=== PATIENT | male | born 1940 | race Caucasian/White ===

== ENCOUNTER 2017-07-18 07:37 | Inpatient (IN) ==
[2017-07-18] MEDS ORDERED: DIPH/TET/ACEL PERT BOOSTER VACCINE 0.5 ML VIAL IM ONE (08:02)
[2017-07-18 08:34] LABS: Basophils # 0.1 10*3/uL (0.0-0.2); Basophils % 0.5 % (0.0-0.8); Eosinophils # 0.2 10*3/uL (0.0-0.87); Eosinophils % 1.9 % (0.00-10.9); Hematocrit 44.7 VOL% (42.0-52.0); Hemoglobin 15.5 GM/DL (14.0-18.0); Immature Granulocytes % 0.5 %; Immature Granulocytes Absolute 0.05 #; Lymphocytes # 1.7 10*3/uL (1.4-4.0); Lymphocytes % 15.4 % (21.2-54.2); Mean Corpuscular HGB Conc 34.7 GM/DL (32-36); Mean Corpuscular Hemoglobin 32 PG (27-34); Mean Corpuscular Volume 93.1 FL (87-102); Mean Platelet Volume 9.4 FL (9.6-12.0); Monocytes % 9.1 % (1.7-12.7); Neutrophils % 72.6 % (38.7-73.9); Platelet Count 151 T/CUMM (130-400); Red Cell Distribution Width 13.3 % (9.3-17.3)
[2017-07-18 08:49] LABS: PT Patient Result 10.4 SECS
[2017-07-18 08:54] LABS: Alanine Aminotransferase 22 U/L (16-61); Albumin 3.5 G/DL (3.4-5.0); Alkaline Phosphatase 108 U/L (45-117); Aspartate Amino Transferase 20 U/L (0-37); Blood Urea Nitrogen 15 MG/DL (7-18); Calcium 9.3 MG/DL (8.5-10.1); Glucose 128 MG/DL (74-106); Osmolality,Calculated 277.7 MOS/KG (273-304); Potassium 3.9 MMOL/L (3.5-5.1); Sodium 138 MMOL/L (136-145); Total Protein 7.1 G/DL (6.4-8.3); Troponin I Only < 0.015 NG/ML (0.00-0.045)
[2017-07-18 12:34] LABS: Apearance,Urine Slightly Hazy (Clear); Bilirubin,Urine Negative (Negative); Blood, Urine Negative (Negative); Glucose,Urine (UA) Negative (Negative); Ketones,Urine 5 mg/dL (Negative); Mucus,Urine Occasional /LPF (Occasional); Nitrite,Urine Negative (Negative); Protein,Urine Negative; RBC,Urine <1 /HPF (0-4); Squamous Epithelial Cell,Urine Occasional /HPF (0-10); Urine Color Yellow (Yellow); Urine Specific Gravity 1.014 (1.001-1.035); Urine Urobilinogen < 2.0 EU/DL (0.2-1.0); WBC,Urine 1 /HPF (0-6)
[2017-07-18] MEDS ORDERED: ONDANSETRON 4 MG/2 ML VIAL IV PRN (16:03)
[2017-07-18] MEDS ORDERED: ACETAMINOPHEN 325 MG TABLET PO PRN (16:03)
[2017-07-18] MEDS ORDERED: TETRACAINE 1% MISC INJ ONE (16:30)
[2017-07-18] MEDS ORDERED: ACETAMINOPHEN 500 MG TABLET ONE (17:08)
[2017-07-18] MEDS ORDERED: ACETAMINOPHEN 500 MG TABLET PO STA (17:19)
[2017-07-18] MEDS: SODIUM CHLORIDE 0.9% 1,000 ML IV SCH (17:20)
[2017-07-19] MEDS: SODIUM CHLORIDE 0.9% 1,000 ML IV SCH ×2 (03:45→20:58)
[2017-07-19] MEDS: DOCUSATE SODIUM 100 MG CAPSULE PO SCH ×3 (05:24→21:01)
[2017-07-19] MEDS: SERTRALINE 100 MG TABLET PO SCH ×3 (05:25→21:01)
[2017-07-19] MEDS ORDERED: LIDOCAINE 1%/EPI INJ 20 ML VIAL ONE (06:30)
[2017-07-19] MEDS ORDERED: OXYMETAZOLINE 0.05% NASAL SPRAY 15 ML BOTTLE ONE (06:30)
[2017-07-19] MEDS: ceFAZolin 1,000 MG in SYRINGE 1 EACH IV SCH ×3 (07:42→21:16)
[2017-07-19] MEDS ORDERED: BACITRACIN OPH OINT 3.5 GM TUBE ONE (09:43)
[2017-07-19] MEDS ORDERED: ONDANSETRON 4 MG/2 ML VIAL ONE ×2 (10:39→11:15)
[2017-07-19] MEDS ORDERED: SEVOFLURANE 1 UNIT/15 MINUTE INH ONE (10:39)
[2017-07-19] MEDS ORDERED: PROPOFOL 200 MG/20 ML VIAL IV ONE (10:39)
[2017-07-19] MEDS ORDERED: fentaNYL 100 MCG/2 ML VIAL ONE (10:39)
[2017-07-19] MEDS ORDERED: MORPHINE 10 MG/1 ML VIAL IV PRN (11:13)
[2017-07-19] MEDS ORDERED: ONDANSETRON 4 MG/2 ML VIAL IV PRN (11:13)
[2017-07-19] MEDS ORDERED: MORPHINE 10 MG/1 ML VIAL ONE (11:15)
[2017-07-19 13:17] LABS: Risk Ratio 2.85
[2017-07-19] MEDS: ROSUVASTATIN 10 MG TABLET PO SCH (15:54)
[2017-07-19] MEDS: PANTOPRAZOLE 40 MG TABLET PO SCH (15:54)
[2017-07-19] MEDS ORDERED: TEMAZEPAM 15 MG CAPSULE PO ONE (21:00)
[2017-07-19] MEDS ORDERED: KETOROLAC 15 MG/1 ML VIAL IV ONE (21:00)
[2017-07-20] MEDS: SODIUM CHLORIDE 0.9% 1,000 ML IV SCH ×2 (01:45→10:04)
[2017-07-20] MEDS: ceFAZolin 1,000 MG in SYRINGE 1 EACH IV SCH (04:35)
[2017-07-20 06:16] LABS: Basophils % 0.5 % (0.0-0.8); Eosinophils # 0.2 10*3/uL (0.0-0.87); Eosinophils % 1.9 % (0.00-10.9); Hematocrit 42.2 VOL% (42.0-52.0); Hemoglobin 14.6 GM/DL (14.0-18.0); Immature Granulocytes % 0.4 %; Immature Granulocytes Absolute 0.03 #; Lymphocytes # 1.8 10*3/uL (1.4-4.0); Lymphocytes % 20.6 % (21.2-54.2); Mean Corpuscular HGB Conc 34.6 GM/DL (32-36); Mean Corpuscular Hemoglobin 32 PG (27-34); Mean Corpuscular Volume 92.3 FL (87-102); Mean Platelet Volume 9.2 FL (9.6-12.0); Monocytes % 11.3 % (1.7-12.7); Neutrophils # 5.6 10*3/uL (1.4-7.4); Neutrophils % 65.3 % (38.7-73.9); Platelet Count 146 T/CUMM (130-400); Red Blood Count 4.57 MC/CUMM (3.8-5.5); Red Cell Distribution Width 13.4 % (9.3-17.3); White Blood Count 8.6 T/CUMM (4-12)
[2017-07-20 06:47] LABS: Calcium 8.7 MG/DL (8.5-10.1); Osmolality,Calculated 275.5 MOS/KG (273-304); Potassium 4.2 MMOL/L (3.5-5.1)
[2017-07-20 08:11] VITALS: BP 134/82
[2017-07-20] MEDS ORDERED: KETOROLAC 30 MG/1 ML VIAL IV ONE (08:34)
[2017-07-20] MEDS ORDERED: BACITRACIN OPH OINT 3.5 GM TUBE LEFT EYE SCH (09:00)
[2017-07-20] MEDS ORDERED: MUPIROCIN 2% OINT 22 GM TUBE TOP SCH (09:00)
[2017-07-20] MEDS: DOCUSATE SODIUM 100 MG CAPSULE PO SCH (09:15)
[2017-07-20] MEDS: ROSUVASTATIN 10 MG TABLET PO SCH (09:15)
[2017-07-20] MEDS: PANTOPRAZOLE 40 MG TABLET PO SCH (09:15)
[2017-07-20] MEDS: SERTRALINE 100 MG TABLET PO SCH (09:17)
== END 2017-07-20 11:10 | disposition home or self-care (01) | DRG 581 ==
LOC: N.ED 07:37 → N.EDINP 09:01 → N.2E 21:26
PROVIDERS: ADMIT Family Medicine; ATTEND Family Medicine

== ENCOUNTER 2019-05-29 12:27 | Inpatient (IN) ==
[2019-05-29] MEDS ORDERED: fentaNYL 100 MCG/2 ML VIAL IV STA (13:01)
[2019-05-29] MEDS ORDERED: ONDANSETRON 4 MG/2 ML VIAL IV STA (13:01)
[2019-05-29 13:48] LABS: Basophils % 0.5 % (0.0-0.8); Eosinophils # 0.2 10*3/uL (0.0-0.87); Eosinophils % 2.4 % (0.00-10.9); Hematocrit 45.4 VOL% (42.0-52.0); Hemoglobin 15.1 GM/DL (14.0-18.0); Immature Granulocytes % 0.6 %; Immature Granulocytes Absolute 0.05 #; Lymphocytes # 2.8 10*3/uL (1.4-4.0); Lymphocytes % 33.7 % (21.2-54.2); Mean Corpuscular HGB Conc 33.3 GM/DL (32-36); Mean Platelet Volume 9.1 FL (9.6-12.0); Monocytes % 8.1 % (1.7-12.7); Neutrophils % 54.7 % (38.7-73.9); Platelet Count 154 T/CUMM (130-400); Red Blood Count 4.83 MC/CUMM (3.8-5.5); Red Cell Distribution Width 13.5 % (9.3-17.3); White Blood Count 8.4 T/CUMM (4-12)
[2019-05-29 13:58] LABS: INR 0.9; PT Patient Result 10.3 SECS (9.6-12.2); Partial Thromboplastin Time 25.8 SECS (20.8-36.0)
[2019-05-29 14:02] LABS: Albumin 3.4 G/DL (3.4-5.0); Bilirubin,Total 0.5 MG/DL (0.2-1.0); Calcium 9.1 MG/DL (8.5-10.1); Osmolality,Calculated 275.7 MOS/KG (273-304); Total Protein 6.8 G/DL (6.4-8.3)
[2019-05-29 14:57] LABS: Apearance,Urine Slightly Hazy (Clear); Bilirubin,Urine Negative (Negative); Blood, Urine Negative (Negative); Glucose,Urine (UA) Negative (Negative); Hyaline Casts,Urine 1 /LPF (0-3); Ketones,Urine Negative (Negative); Nitrite,Urine Negative (Negative); Protein,Urine Negative; RBC,Urine <1 /HPF (0-4); Urine Color Amber (Yellow); Urine Specific Gravity 1.013 (1.001-1.035); Urine Urobilinogen < 2.0 EU/DL (0.2-1.0); WBC,Urine <1 /HPF (0-6)
[2019-05-29] MEDS ORDERED: ONDANSETRON 4 MG/2 ML VIAL IV PRN (15:30)
[2019-05-29] MEDS ORDERED: fentaNYL 100 MCG/2 ML VIAL IV PRN (15:30)
[2019-05-29] MEDS ORDERED: ACETAMINOPHEN 325 MG TABLET PO PRN (15:30)
[2019-05-29] MEDS: SODIUM CHLORIDE 0.9% 1,000 ML IV SCH ×2 (16:14→23:48)
[2019-05-29] MEDS ORDERED: SILDENAFIL 50 MG PO PRN (17:19)
[2019-05-29] MEDS: ROSUVASTATIN 10 MG TABLET PO SCH (20:39)
[2019-05-29] MEDS: SERTRALINE 100 MG TABLET PO SCH (20:39)
[2019-05-29] MEDS: METOPROLOL TARTRATE 25 MG TABLET PO SCH (20:39)
[2019-05-29] MEDS: DOCUSATE SODIUM 100 MG CAPSULE PO SCH (20:41)
[2019-05-30 05:17] LABS: Basophils % 0.5 % (0.0-0.8); Eosinophils # 0.2 10*3/uL (0.0-0.87); Eosinophils % 2.6 % (0.00-10.9); Hematocrit 43.6 VOL% (42.0-52.0); Hemoglobin 14.7 GM/DL (14.0-18.0); Immature Granulocytes % 0.2 %; Immature Granulocytes Absolute 0.02 #; Lymphocytes # 1.6 10*3/uL (1.4-4.0); Lymphocytes % 19.1 % (21.2-54.2); Mean Corpuscular HGB Conc 33.7 GM/DL (32-36); Mean Corpuscular Volume 93.8 FL (87-102); Mean Platelet Volume 9.5 FL (9.6-12.0); Monocytes % 9.4 % (1.7-12.7); Neutrophils % 68.2 % (38.7-73.9); Platelet Count 139 T/CUMM (130-400); Red Blood Count 4.65 MC/CUMM (3.8-5.5); Red Cell Distribution Width 13.5 % (9.3-17.3); White Blood Count 8.5 T/CUMM (4-12)
[2019-05-30 05:53] LABS: Calcium 8.9 MG/DL (8.5-10.1); Osmolality,Calculated 279.4 MOS/KG (273-304)
[2019-05-30] MEDS: SODIUM CHLORIDE 0.9% 1,000 ML IV SCH ×2 (07:17→14:01)
[2019-05-30] MEDS: MULTIVITAMIN (CENTRUM) TABLET PO SCH (08:32)
[2019-05-30] MEDS: DOCUSATE SODIUM 100 MG CAPSULE PO SCH ×2 (08:32→21:31)
[2019-05-30] MEDS: PANTOPRAZOLE 40 MG TABLET PO SCH (08:32)
[2019-05-30] MEDS: SERTRALINE 100 MG TABLET PO SCH ×2 (08:32→21:31)
[2019-05-30] MEDS ORDERED: ceFAZolin 2,000 MG in PREMIX 1 EACH IV ONE (09:00)
[2019-05-30] MEDS: METOPROLOL TARTRATE 25 MG TABLET PO SCH ×2 (09:40→21:30)
[2019-05-30] MEDS ORDERED: DEXMEDETOMIDINE 200 MCG/2 ML VIAL ONE (09:54)
[2019-05-30] MEDS ORDERED: MIDAZOLAM 2 MG/2 ML VIAL ONE (09:54)
[2019-05-30] MEDS ORDERED: DEXAMETHASONE 4 MG/1 ML VIAL ONE (09:55)
[2019-05-30] MEDS ORDERED: ROPIVACAINE 0.5% 30 ML VIAL ONE (09:55)
[2019-05-30] MEDS ORDERED: LACTULOSE 20 GM/30 ML UDCUP PO PRN (11:38)
[2019-05-30] MEDS ORDERED: BISACODYL 10 MG SUPP RECTAL PRN (11:38)
[2019-05-30] MEDS ORDERED: MAGNESIUM HYDROXIDE SUSP 30 ML UDCUP PO PRN (11:38)
[2019-05-30] MEDS ORDERED: PROMETHAZINE 25 MG/1 ML VIAL IM PRN (11:38)
[2019-05-30] MEDS ORDERED: diphenhydrAMINE CAP 25 MG CAPSULE PO PRN (11:38)
[2019-05-30] MEDS ORDERED: TRANEXAMIC ACID 1,000 MG/10 ML VIAL ONE (11:50)
[2019-05-30] MEDS ORDERED: ETOMIDATE 40 MG/20 ML VIAL IV ONE (12:57)
[2019-05-30] MEDS ORDERED: GLYCOPYRROLATE 0.4 MG/2 ML VIAL ONE (12:57)
[2019-05-30] MEDS ORDERED: propofoL 200 MG/20 ML VIAL IV ONE (12:57)
[2019-05-30] MEDS ORDERED: LACTATED RINGERS 1,000 ML IV ONE (12:58)
[2019-05-30] MEDS ORDERED: SODIUM CHLORIDE 0.9% 100 ML IV ONE (12:58)
[2019-05-30] MEDS ORDERED: PHENYLEPHRINE 1 MG/10 ML SYRINGE IV ONE (12:58)
[2019-05-30] MEDS: ceFAZolin 2,000 MG in PREMIX 1 EACH IV SCH (15:26)
[2019-05-30] MEDS ORDERED: TUBERCULIN SKIN TEST 0.1 ML SYRINGE INTRADERM ONE (16:15)
[2019-05-30] MEDS ORDERED: MEPERIDINE 25 MG/1 ML VIAL IM PRN (17:21)
[2019-05-30] MEDS ORDERED: MEPERIDINE 50 MG/1 ML VIAL IM PRN (17:26)
[2019-05-30] MEDS: ROSUVASTATIN 10 MG TABLET PO SCH (21:30)
[2019-05-30] MEDS ORDERED: HALOPERIDOL 5 MG/ML AMP IM PRN (23:00)
[2019-05-31] MEDS: ceFAZolin 2,000 MG in PREMIX 1 EACH IV SCH (01:38)
[2019-05-31] MEDS: FONDAPARINUX 2.5 MG/0.5 ML SYRINGE SUBCUT SCH (05:24)
[2019-05-31 05:54] LABS: Basophils % 0.3 % (0.0-0.8); Eosinophils # 0.1 10*3/uL (0.0-0.87); Eosinophils % 0.7 % (0.00-10.9); Hematocrit 41.9 VOL% (42.0-52.0); Hemoglobin 13.8 GM/DL (14.0-18.0); Immature Granulocytes % 0.5 %; Immature Granulocytes Absolute 0.05 #; Lymphocytes # 1.8 10*3/uL (1.4-4.0); Mean Corpuscular HGB Conc 32.9 GM/DL (32-36); Mean Platelet Volume 9.1 FL (9.6-12.0); Monocytes % 10.9 % (1.7-12.7); Neutrophils % 69.6 % (38.7-73.9); Platelet Count 137 T/CUMM (130-400); Red Blood Count 4.41 MC/CUMM (3.8-5.5); Red Cell Distribution Width 13.3 % (9.3-17.3); White Blood Count 9.9 T/CUMM (4-12)
[2019-05-31 06:22] LABS: Calcium 8.5 MG/DL (8.5-10.1); Osmolality,Calculated 274.8 MOS/KG (273-304)
[2019-05-31] MEDS: DOCUSATE SODIUM 100 MG CAPSULE PO SCH ×2 (09:34→20:48)
[2019-05-31] MEDS: MULTIVITAMIN (CENTRUM) TABLET PO SCH (09:35)
[2019-05-31] MEDS: METOPROLOL TARTRATE 25 MG TABLET PO SCH ×2 (09:35→20:48)
[2019-05-31] MEDS: PANTOPRAZOLE 40 MG TABLET PO SCH (09:35)
[2019-05-31] MEDS: SERTRALINE 100 MG TABLET PO SCH ×2 (09:35→20:48)
[2019-05-31] MEDS: SODIUM CHLORIDE 0.9% 1,000 ML IV SCH ×2 (10:08→11:23)
[2019-05-31] MEDS: traMADol 50 MG TABLET PO PRN (16:18)
[2019-05-31] MEDS: ROSUVASTATIN 10 MG TABLET PO SCH (20:49)
[2019-06-01] MEDS: FONDAPARINUX 2.5 MG/0.5 ML SYRINGE SUBCUT SCH (05:13)
[2019-06-01] MEDS: PANTOPRAZOLE 40 MG TABLET PO SCH (10:46)
[2019-06-01] MEDS: MULTIVITAMIN (CENTRUM) TABLET PO SCH (10:46)
[2019-06-01] MEDS: DOCUSATE SODIUM 100 MG CAPSULE PO SCH ×2 (10:46→20:53)
[2019-06-01] MEDS: SERTRALINE 100 MG TABLET PO SCH ×2 (10:47→20:53)
[2019-06-01] MEDS: METOPROLOL TARTRATE 25 MG TABLET PO SCH ×2 (10:47→20:53)
[2019-06-01] MEDS: traMADol 50 MG TABLET PO PRN (10:51)
[2019-06-01] MEDS ORDERED: methylPREDNISolone SOD SUC 125 MG/2 ML VIAL IV ONE (14:38)
[2019-06-01] MEDS ORDERED: DICLOFENAC 1% GEL 100 GM TUBE TOP PRN (14:40)
[2019-06-01] MEDS: ROSUVASTATIN 10 MG TABLET PO SCH (20:53)
[2019-06-02] MEDS: LORazepam 2 MG/1 ML VIAL IV PRN (00:55)
[2019-06-02] MEDS: SODIUM CHLORIDE 0.9% 1,000 ML IV SCH ×4 (00:58→22:05)
[2019-06-02] MEDS: FONDAPARINUX 2.5 MG/0.5 ML SYRINGE SUBCUT SCH (06:55)
[2019-06-02] MEDS: DOCUSATE SODIUM 100 MG CAPSULE PO SCH ×2 (09:51→20:41)
[2019-06-02] MEDS: PANTOPRAZOLE 40 MG TABLET PO SCH (09:51)
[2019-06-02] MEDS: SERTRALINE 100 MG TABLET PO SCH ×2 (09:52→20:41)
[2019-06-02] MEDS: MULTIVITAMIN (CENTRUM) TABLET PO SCH (09:52)
[2019-06-02] MEDS: METOPROLOL TARTRATE 25 MG TABLET PO SCH ×2 (09:52→20:41)
[2019-06-02] MEDS: ROSUVASTATIN 10 MG TABLET PO SCH (20:41)
[2019-06-03] MEDS: FONDAPARINUX 2.5 MG/0.5 ML SYRINGE SUBCUT SCH (06:23)
[2019-06-03] MEDS: DOCUSATE SODIUM 100 MG CAPSULE PO SCH ×2 (10:05→21:44)
[2019-06-03] MEDS: SERTRALINE 100 MG TABLET PO SCH ×2 (10:05→21:43)
[2019-06-03] MEDS: METOPROLOL TARTRATE 25 MG TABLET PO SCH ×2 (10:05→21:43)
[2019-06-03] MEDS: MULTIVITAMIN (CENTRUM) TABLET PO SCH (10:05)
[2019-06-03] MEDS: PANTOPRAZOLE 40 MG TABLET PO SCH (10:05)
[2019-06-03] MEDS: SODIUM CHLORIDE 0.9% 1,000 ML IV SCH (19:42)
[2019-06-03] MEDS: LORazepam 2 MG/1 ML VIAL IV PRN (21:18)
[2019-06-03] MEDS: ROSUVASTATIN 10 MG TABLET PO SCH (21:44)
[2019-06-04] MEDS: LORazepam 2 MG/1 ML VIAL IV PRN (03:48)
[2019-06-04] MEDS: FONDAPARINUX 2.5 MG/0.5 ML SYRINGE SUBCUT SCH (05:44)
[2019-06-04 06:24] LABS: Basophils % 0.2 % (0.0-0.8); Eosinophils % 0.4 % (0.00-10.9); Hematocrit 39.1 VOL% (42.0-52.0); Immature Granulocytes % 0.5 %; Immature Granulocytes Absolute 0.05 #; Lymphocytes # 1.1 10*3/uL (1.4-4.0); Lymphocytes % 10.9 % (21.2-54.2); Mean Corpuscular HGB Conc 33.2 GM/DL (32-36); Mean Corpuscular Volume 92.9 FL (87-102); Mean Platelet Volume 8.6 FL (9.6-12.0); Monocytes % 10.1 % (1.7-12.7); Neutrophils % 77.9 % (38.7-73.9); Platelet Count 228 T/CUMM (130-400); Red Blood Count 4.21 MC/CUMM (3.8-5.5); Red Cell Distribution Width 12.9 % (9.3-17.3); White Blood Count 9.7 T/CUMM (4-12)
[2019-06-04 06:54] LABS: Calcium 9.4 MG/DL (8.5-10.1); Osmolality,Calculated 272.1 MOS/KG (273-304)
[2019-06-04] MEDS: PANTOPRAZOLE 40 MG TABLET PO SCH (08:53)
[2019-06-04] MEDS: MULTIVITAMIN (CENTRUM) TABLET PO SCH (08:53)
[2019-06-04] MEDS: DOCUSATE SODIUM 100 MG CAPSULE PO SCH ×2 (08:54→20:42)
[2019-06-04] MEDS: METOPROLOL TARTRATE 25 MG TABLET PO SCH ×2 (08:54→20:42)
[2019-06-04] MEDS: SERTRALINE 100 MG TABLET PO SCH ×2 (08:54→20:42)
[2019-06-04] MEDS: QUEtiapine 25 MG TABLET PO SCH (10:22)
[2019-06-04 10:37] LABS: Apearance,Urine CLEAR (Clear); Bilirubin,Urine Negative (Negative); Blood, Urine Small mg/dL (Negative); Glucose,Urine (UA) 50 mg/dL (Negative); Ketones,Urine Negative (Negative); Mucus,Urine Occasional /LPF (Occasional); Nitrite,Urine Negative (Negative); Protein,Urine 30 MG/DL; RBC,Urine 3 /HPF (0-4); Squamous Epithelial Cell,Urine Occasional /HPF (0-10); Urine Color Yellow (Yellow); Urine Specific Gravity 1.025 (1.001-1.035); WBC,Urine 1 /HPF (0-6)
[2019-06-04] MEDS: ROSUVASTATIN 10 MG TABLET PO SCH (20:42)
[2019-06-04] MEDS: SODIUM CHLORIDE 0.9% 1,000 ML IV SCH (23:15)
[2019-06-05] MEDS: QUEtiapine 25 MG TABLET PO SCH (02:18)
[2019-06-05] MEDS: FONDAPARINUX 2.5 MG/0.5 ML SYRINGE SUBCUT SCH (05:36)
[2019-06-05] MEDS: METOPROLOL TARTRATE 25 MG TABLET PO SCH ×2 (09:33→21:02)
[2019-06-05] MEDS: PANTOPRAZOLE 40 MG TABLET PO SCH (09:33)
[2019-06-05] MEDS: MULTIVITAMIN (CENTRUM) TABLET PO SCH (09:33)
[2019-06-05] MEDS: DOCUSATE SODIUM 100 MG CAPSULE PO SCH ×2 (09:34→21:03)
[2019-06-05] MEDS: SERTRALINE 100 MG TABLET PO SCH ×2 (09:34→21:03)
[2019-06-05] MEDS: SODIUM CHLORIDE 0.9% 1,000 ML IV SCH (18:46)
[2019-06-05] MEDS ORDERED: QUEtiapine 25 MG TABLET PO SCH (21:00)
[2019-06-05] MEDS: ROSUVASTATIN 10 MG TABLET PO SCH (21:02)
[2019-06-06] MEDS: FONDAPARINUX 2.5 MG/0.5 ML SYRINGE SUBCUT SCH (05:55)
[2019-06-06 07:52] VITALS: BP 138/77
[2019-06-06] MEDS ORDERED: LOPERAMIDE 2 MG CAPSULE PO ONE (08:53)
[2019-06-06] MEDS ORDERED: LOPERAMIDE 2 MG CAPSULE PO PRN (08:56)
[2019-06-06] MEDS: MULTIVITAMIN (CENTRUM) TABLET PO SCH (09:23)
[2019-06-06] MEDS: METOPROLOL TARTRATE 25 MG TABLET PO SCH (09:23)
[2019-06-06] MEDS: PANTOPRAZOLE 40 MG TABLET PO SCH (09:24)
[2019-06-06] MEDS: SERTRALINE 100 MG TABLET PO SCH (09:24)
[2019-06-06] MEDS: DOCUSATE SODIUM 100 MG CAPSULE PO SCH (09:24)
== END 2019-06-06 10:36 | DRG 470 ==
LOC: N.ED 12:27 → N.EDINP 13:19 → N.3E 15:19
PROVIDERS: ADMIT Family Medicine; ATTEND Family Medicine